=== PATIENT | male | born 1970 | race Caucasian/White ===

== ENCOUNTER 2017-01-28 14:27 | Emergency (ER) | payer MEDICAID ==
[~2017-01-28 14:27] MED LIST: ALBUTEROL2.5 MG/0.1 IH; BENTYL20 M1 PO; BENTYL20 MG PO; CARAFATE1 G2 PO; CLONAZEPAM2 MG; COMPAZINE10 M PO; CULTURELLE1 CA1 PO; ESCITALOPRAM; EXCEDRIN MIGRA1 EAC3 PO; FLAGYL; FLAGYL500 MG PO; GAS RELIEF80 M1; KLONOPIN2 M1 PO; KLONOPIN2 MG PO; LAMICTAL25 M2 PO; LEVAQUIN; LEVAQUIN750 MG PO; LEXAPRO10 MG PO; LEXAPRO20 M1 PO; LEXAPRO20 M2 PO; LEXAPRO20 MG; LEXAPRO20 MG PO; LOMOTIL TABLET1 TAB PO; LORTAB 7.5/5001 EA PO; Levaquin PO; MOTRIN600 MG PO; NORCO 10/325 TA1 TAB PO; NORCO 5-325 TA1 EACH PO; NORCO 5/325 TAB1 TAB PO; OXYIR5 MG PO; PEPTO-BISM262 MG/15 PO; PRILOSEC20 M1 PO; PROVENTIL HFA6.7 G1 IH; SEROQUEL100 M2 PO; SEROQUEL25 M1 PO; SEROQUEL25 MG; TAMIFLU75 MG/CAP PO; TOPAMAX25 M1 PO; WELLBUTRIN SR200 M1 PO; WELLBUTRIN SR200 MG; WELLBUTRIN XL300 M1 PO; XIFAXAN550 M1 PO; ZITHROMAX250 M1 PO; ZOFRAN ODT4 MG/UDTAB PO; ZOFRAN4 M2 PO; ZOLOFT25 M1 PO
[2017-01-28] MEDS ORDERED: BENTYL10 M1 PO (14:39)
== END 2017-01-28 15:50 ==
LOC: EDMED 14:27
PROC: 0HQFXZZ Repair Right Hand Skin, External Approach (ICD-10-PCS; principal; 2017-01-28)
DX: S61.210A Laceration without foreign body of right index finger without damage to nail, initial encounter (principal); Z23 Encounter for immunization; W26.0XXA Contact with knife, initial encounter